=== PATIENT | female | born 1945 | race Caucasian/White ===

== ENCOUNTER 2024-12-28 13:36 | Emergency (ER) | payer MEDICARE, OTHER ==
[2024-12-28 13:39] VITALS: BP 172/77; PULSE 78
[2024-12-28] MEDS: Ciprofloxacin 0.3% Ophth Soln 5 ML Bottle EYELF ONE (13:44)
[2024-12-28] MEDS: Tetracaine HCl/PF 0.5% 4 ML Bottle EYEBOTH ONE (14:06)
[2024-12-28] MEDS: Fluorescein 1 MG Ophth Strip EYELF ONE (14:06)
== END 2024-12-28 14:00 | disposition home or self-care (01) ==
LOC: CC.ED 13:36
DX: S05.02XA Injury of conjunctiva and corneal abrasion without foreign body, left eye, initial encounter (principal); I10 Essential (primary) hypertension; Z90.49 Acquired absence of other specified parts of digestive tract; Z90.710 Acquired absence of both cervix and uterus; Z79.899 Other long term (current) drug therapy; Z88.5 Allergy status to narcotic agent; X58.XXXA Exposure to other specified factors, initial encounter
CPT/HCPCS: 99283; A9270